=== PATIENT | female | born 1990 | race Caucasian/White ===

== ENCOUNTER 2016-10-10 10:57 | Outpatient (CLI) | payer BC ==
--- NOTE | 2016-10-10 15:22 | DIAGNOSTIC IMAGING REPORT ---
PROCEDURE: US SOFT TISSUE THYR/NECK/HEAD INDICATION: Follow up possible right parotid mass or cyst as seen on outside MRI. TECHNIQUE: Moralez scale and color Doppler sonographic images of the parotid region were obtained COMPARISON: Comparison made to MRI of the cervical spine from [facility] on 09/26/2016. FINDINGS: Imaging of the parotid regions is partially limited due to body habitus. Right parotid gland is mildly prominent with a prominent deep lobe (2.5 cm).). No definite underlying mass, although subtle changes may be difficult to exclude. There is a 1.9 x 1.0 cm ovoid hypoechoic nodule in the posterior left parotid gland which most likely represents a mildly enlarged lymph node. The rest of the left parotid gland is normal. IMPRESSION: 1. There is a mildly prominent deep lobe of the right parotid gland. While this may be normal, underlying subtle mass might be considered. 2. There is a prominent 1.9 x 1.0 cm ovoid nodule in the posterior superficial left parotid gland which most likely represents enlarged lymph node, although underlying soft tissue mass might be considered. 3. In view the above changes, CT soft tissue neck and parotid glands with intravenous contrast is recommended to further evaluate. 4. Findings discussed with the patient and called to Dr. Rozina Gallo.
== END 2016-10-10 23:00 ==
LOC: US SRH 10:57
DX: K11.8 Other diseases of salivary glands (principal)

== ENCOUNTER 2016-10-11 14:48 | Outpatient (CLI) | payer BC ==
--- NOTE | 2016-10-11 16:36 | DIAGNOSTIC IMAGING REPORT ---
PROCEDURE: CT SOFT TISSUE NECK WITH CONT INDICATION: PAROTID CYST,RT TECHNIQUE: 125 ml of Isovue 300 injected intravenously and axial images were obtained from the skull base through the upper mediastinum with sagittal and coronal reformations. In addition, angled axial oblique images were obtained (avoiding dental hardware). COMPARISON: MRI from [facility] on 09/26/2016 and neck ultrasound 10/10/2016 FINDINGS: There is a 2.9 cm soft tissue density medial to the right angle of the mandible measuring 19 HU. Normal left parotid gland. 1.5 x 1 cm left digastric lymph node. Mildly prominent bilateral submandibular lymph nodes. Submandibular and thyroid glands are normal. Normal airway. Normal carotid bifurcations. Lung apices are clear. Left nasal piercing device. Visualized sinuses and mastoids are clear. Bones are unremarkable. IMPRESSION: 1. 2.9 cm soft tissue mass medial to the right angle of the mandible which may be cystic. Differential diagnosis includes branchial cleft cyst, lymphocele or lymphangioma. Glomus tumor is less likely. Recommend MRI with and without Gadolinium. All CT scans at this facility use dose modulation, iterative reconstruction, and/or weight-based dosing when appropriate to reduce radiation dose to as low as reasonably achievable.
== END 2016-10-11 23:00 ==
LOC: CT SRH 14:48
DX: K11.6 Mucocele of salivary gland (principal); M79.9 Soft tissue disorder, unspecified